=== PATIENT | male | born 1935 | race Asian ===

== ENCOUNTER 2022-05-30 07:13 | Inpatient (IN) | payer BC, MEDICAID ==
[~2022-05-30] VITALS: Ht 172.7 cm; Wt 66.5 kg
[2022-05-30 08:03] LABS: Basophils # (auto) 0.1 10 ^3/uL (0-0.2); Eosinophils # (auto) 0.5 10 ^3/uL (0-0.8); Hemoglobin 7.8 g/dL (13.5-17.5); Mean Corpuscular Hemoglobin 28.2 pg (28.0-32.0); Monocytes # (auto) 1.3 10 ^3/uL (0-1.3); Neutrophils # (auto) 9.5 10 ^3/uL (1.6-8.6)
[2022-05-30 08:06] LABS: Basophils % (auto) 0.7 % (0.0-2.0); Eosinophils % (auto) 3.5 % (0.0-7.0); Hematocrit 23.4 % (41.0-53.0); Lymphocytes # (auto) 1.6 10 ^3/uL (0.4-5.4); Lymphocytes % (auto) 12.4 % (10.0-50.0); Mean Corpuscular Hgb Conc. 33.3 g/dL (32.0-36.0); Mean Corpuscular Volume 84.8 fL (80.0-100.0); Monocytes % (auto) 10.4 % (0.0-12.0); Red Blood Cells 2.76 10^6/uL (4.5-5.90); Red Cell Distribution Width 14.8 % (11.8-14.3); White Blood Cell 12.9 10^3/uL (4.4-10.8)
[2022-05-30] MEDS ORDERED: ALBUTEROL SULF 2.5 MG/0.5ML(0.5%) NEB SOLN NEB ONE ×2 (08:15)
[2022-05-30] MEDS ORDERED: IPRATROPIUM BROM 0.5 MG/2.5ML INH SOL NEB ONE (08:15)
[2022-05-30 08:16] LABS: Albumin 2.7 g/dL (3.4-5.0); Calcium 8.1 mg/dL (8.5-10.1); Magnesium 2.1 mg/dL (1.6-2.6); Potassium 3.7 mmol/L (3.5-5.1)
[2022-05-30 08:18] LABS: BUN/Creatinine Ratio 14.1
[2022-05-30 08:20] LABS: Bilirubin, Total 0.8 mg/dL (0.2-1.0); Total Protein 7.6 g/dL (6.4-8.2)
[2022-05-30] MEDS ORDERED: AZITHROMYCIN 500MG/ 250ML 250 ML IV ONE ×2 (10:15→11:15)
[2022-05-30] MEDS ORDERED: CEFTRIAXONE SODIUM 2 GM in D5W 5% 50 ML IV ONE (10:15)
[2022-05-30] MEDS ORDERED: ONDANSETRON HCL 4 MG/2 ML VIAL IV PRN (10:30)
[2022-05-30] MEDS ORDERED: ALBUTEROL SULF 2.5 MG/0.5ML(0.5%) NEB SOLN NEB PRN (10:30)
[2022-05-30] MEDS ORDERED: HYDROcodone-ACET 5/325MG TAB PO PRN (10:30)
[2022-05-30] MEDS ORDERED: IPRATROPIUM BROM 0.5 MG/2.5ML INH SOL NEB PRN (10:30)
[2022-05-30] MEDS ORDERED: ALUM & MAG HYDROX-SIMETH LIQ(MAALOX) 30 ML PO PRN (10:30)
[2022-05-30] MEDS ORDERED: NITROGLYCERIN 0.4 MG SL TAB SL PRN (10:30)
[2022-05-30] MEDS ORDERED: MORPHINE SULFATE INJ 2 MG/ml SYRG IV PRN ×2 (10:30)
[2022-05-30 10:40] VITALS: BP 111/54
[2022-05-30] MEDS: SODIUM CHLORIDE 0.9% 1,000 ML IV SCH (10:52)
[2022-05-30 11:02] LABS: Cholesterol 134 mg/dL (< 200); HDL Cholesterol 25 mg/dL (40-59); LDL Cholesterol 94 mg/dL (< 100); Triglycerides 124 mg/dL (< 150)
[2022-05-30 13:29] LABS: Urine Bacteria NONE SEEN /hpf (None Seen); Urine Blood Negative /uL (Negative); Urine Mucus FEW (None Seen); Urine Specific Gravity 1.017 (1.001-1.035); Urine WBC 1 /hpf (0 - 3)
[2022-05-30] MEDS ORDERED: FLUT1AER3 PO (21:26)
[2022-05-30] MEDS ORDERED: AMLO-489 PO (21:26)
[2022-05-30] MEDS ORDERED: ASPI-325 PO (21:26)
[2022-05-30] MEDS ORDERED: METF-370 PO (21:26)
[2022-05-30] MEDS ORDERED: MET25T PO (21:26)
[2022-05-30] MEDS ORDERED: LORA-483 PO (21:26)
[2022-05-30] MEDS ORDERED: ACET-6 PO (21:26)
[2022-05-30] MEDS ORDERED: AMIO200T4 PO (21:26)
[2022-05-30] MEDS ORDERED: ALBU108A5 INH (21:26)
[2022-05-30] MEDS ORDERED: ATOR20TA50 PO (21:26)
[2022-05-31] VITALS (7 sets, daily range): BP systolic 113–151; BP diastolic 44–89
[2022-05-31 06:05] LABS: Basophils # (auto) 0.1 10 ^3/uL (0-0.2); Basophils % (auto) 0.7 % (0.0-2.0); Eosinophils # (auto) 0.4 10 ^3/uL (0-0.8); Eosinophils % (auto) 5.8 % (0.0-7.0); Hematocrit 36.6 % (41.0-53.0); Hemoglobin 12.5 g/dL (13.5-17.5); Lymphocytes # (auto) 1.2 10 ^3/uL (0.4-5.4); Lymphocytes % (auto) 16.7 % (10.0-50.0); Mean Corpuscular Hemoglobin 28.9 pg (28.0-32.0); Mean Corpuscular Hgb Conc. 34.2 g/dL (32.0-36.0); Mean Corpuscular Volume 84.5 fL (80.0-100.0); Monocytes # (auto) 0.6 10 ^3/uL (0-1.3); Monocytes % (auto) 9.1 % (0.0-12.0); Neutrophils # (auto) 4.7 10 ^3/uL (1.6-8.6); Neutrophils % (auto) 67.7 % (37.0-80.0); Red Blood Cells 4.33 10^6/uL (4.5-5.90); Red Cell Distribution Width 14.7 % (11.8-14.3); White Blood Cell 6.9 10^3/uL (4.4-10.8)
[2022-05-31] MEDS: SODIUM CHLORIDE 0.9% 1,000 ML IV SCH (06:06)
[2022-05-31 06:21] LABS: Albumin 2.6 g/dL (3.4-5.0); BUN/Creatinine Ratio 16.4; Calcium 7.8 mg/dL (8.5-10.1); Potassium 4.1 mmol/L (3.5-5.1)
[2022-05-31 06:25] LABS: Bilirubin, Total 0.6 mg/dL (0.2-1.0); Total Protein 6.6 g/dL (6.4-8.2)
[2022-05-31] MEDS: cefTRIAXone 1GM/50ML D5W 50 ML IV SCH (10:23)
[2022-05-31] MEDS: PANTOPRAZOLE 40 MG TAB PO SCH (10:25)
[2022-05-31] MEDS: predniSONE 20 MG TAB PO SCH (10:26)
[2022-05-31] MEDS: AZITHROMYCIN 500MG/ 250ML 250 ML IV SCH (11:30)
[2022-06-01 05:00] VITALS: BP 149/91
[2022-06-01 06:46] LABS: Albumin 3.4 g/dL (3.4-5.0); Calcium 8.2 mg/dL (8.5-10.1); Potassium 4.2 mmol/L (3.5-5.1)
[2022-06-01 06:52] LABS: BUN/Creatinine Ratio 7.5; Bilirubin, Total 0.5 mg/dL (0.2-1.0); Total Protein 7.2 g/dL (6.4-8.2)
[2022-06-01 06:55] LABS: Basophils # (auto) 0 10 ^3/uL (0-0.2); Eosinophils # (auto) 0 10 ^3/uL (0-0.8); Hemoglobin 9.7 g/dL (13.5-17.5); Lymphocytes # (auto) 2.7 10 ^3/uL (0.4-5.4); White Blood Cell 14.5 10^3/uL (4.4-10.8)
[2022-06-01 07:01] LABS: Basophils % (auto) 0.3 % (0.0-2.0); Hematocrit 31.6 % (41.0-53.0); Lymphocytes % (auto) 18.5 % (10.0-50.0); Mean Corpuscular Hemoglobin 22.6 pg (28.0-32.0); Mean Corpuscular Hgb Conc. 30.7 g/dL (32.0-36.0); Mean Corpuscular Volume 73.4 fL (80.0-100.0); Monocytes # (auto) 1.1 10 ^3/uL (0-1.3); Monocytes % (auto) 7.7 % (0.0-12.0); Neutrophils # (auto) 10.7 10 ^3/uL (1.6-8.6); Neutrophils % (auto) 73.5 % (37.0-80.0); Red Blood Cells 4.31 10^6/uL (4.5-5.90); Red Cell Distribution Width 18.2 % (11.8-14.3)
[2022-06-01 09:21] VITALS: BP 150/84
[2022-06-01] MEDS: cefTRIAXone 1GM/50ML D5W 50 ML IV SCH (10:39)
[2022-06-01] MEDS: FUROSEMIDE 40 MG/4 ML VIAL IV SCH (10:40)
[2022-06-01] MEDS: ENOXAPARIN SOD 40 MG/0.4 ML SYRINGE SC SCH (10:40)
[2022-06-01] MEDS: PANTOPRAZOLE 40 MG TAB PO SCH (10:41)
[2022-06-01] MEDS: predniSONE 20 MG TAB PO SCH (10:41)
[2022-06-01] MEDS: AZITHROMYCIN 500MG/ 250ML 250 ML IV SCH (12:00)
[2022-06-01 12:42] VITALS: BP 134/86
[2022-06-01 17:33] VITALS: BP 127/70
[2022-06-02 05:00] VITALS: BP 140/92
[2022-06-02 08:30] VITALS: BP 152/92
[2022-06-02] MEDS: cefTRIAXone 1GM/50ML D5W 50 ML IV SCH (10:15)
[2022-06-02] MEDS: FUROSEMIDE 40 MG/4 ML VIAL IV SCH (10:16)
[2022-06-02] MEDS: ENOXAPARIN SOD 40 MG/0.4 ML SYRINGE SC SCH (10:19)
[2022-06-02] MEDS: PANTOPRAZOLE 40 MG TAB PO SCH (10:19)
[2022-06-02] MEDS: predniSONE 20 MG TAB PO SCH (10:20)
[2022-06-02 12:30] VITALS: BP 133/73
[2022-06-02] MEDS: AZITHROMYCIN 500MG/ 250ML 250 ML IV SCH (13:53)
[2022-06-02] MEDS ORDERED: ASPirin 81 mg TAB PO ONE (14:30)
[2022-06-02] MEDS ORDERED: CLOPIDOGREL BISULFATE 75 MG TAB PO ONE (14:30)
[2022-06-02 17:00] VITALS: BP 136/65
[2022-06-02 22:00] VITALS: BP 139/88
[2022-06-02] MEDS ORDERED: ATORVASTATIN 20 MG TAB PO SCH (22:00)
[2022-06-02] MEDS: SACUBITRIL-VALSARTAN 24mg/26mg TAB PO SCH (22:16)
[2022-06-02] MEDS: METOPROLOL TARTRATE 25 MG TAB PO SCH (22:16)
[2022-06-03 04:55] VITALS: BP 165/93
[2022-06-03 05:00] VITALS: BP 172/92
[2022-06-03 09:00] VITALS: BP 157/88
[2022-06-03] MEDS ORDERED: ASPirin 81 mg TAB PO SCH (10:00)
[2022-06-03] MEDS ORDERED: CLOPIDOGREL BISULFATE 75 MG TAB PO SCH (10:00)
[2022-06-03] MEDS: FUROSEMIDE 40 MG/4 ML VIAL IV SCH (10:10)
[2022-06-03] MEDS: cefTRIAXone 1GM/50ML D5W 50 ML IV SCH (10:10)
[2022-06-03] MEDS: SACUBITRIL-VALSARTAN 24mg/26mg TAB PO SCH (10:11)
[2022-06-03] MEDS: AZITHROMYCIN 500MG/ 250ML 250 ML IV SCH (10:11)
[2022-06-03] MEDS: predniSONE 20 MG TAB PO SCH (10:11)
[2022-06-03] MEDS: ENOXAPARIN SOD 40 MG/0.4 ML SYRINGE SC SCH (10:12)
[2022-06-03] MEDS: METOPROLOL TARTRATE 25 MG TAB PO SCH (10:12)
[2022-06-03] MEDS ORDERED: AZIT500T66 PO (10:46)
[2022-06-03] MEDS ORDERED: CLOP75TA28 PO (10:46)
[2022-06-03] MEDS ORDERED: SACU1TAB PO (10:46)
[2022-06-03 11:26] VITALS: BP 157/88
== END 2022-06-03 11:55 | disposition home or self-care (01) | DRG 871 ==
LOC: EDBD 07:13 → ER 07:13 → TELE 10:29 → TELE-WESTW 20:54
PROVIDERS: ADMIT Family Medicine; ATTEND Family Medicine
DX: A41.9 Sepsis, unspecified organism (principal); J18.9 Pneumonia, unspecified organism; J96.01 Acute respiratory failure with hypoxia; J44.1 Chronic obstructive pulmonary disease with (acute) exacerbation; E44.0 Moderate protein-calorie malnutrition; J44.0 Chronic obstructive pulmonary disease with (acute) lower respiratory infection; D64.9 Anemia, unspecified; D75.839 Thrombocytosis, unspecified; E11.65 Type 2 diabetes mellitus with hyperglycemia; E66.01 Morbid (severe) obesity due to excess calories; E78.00 Pure hypercholesterolemia, unspecified; I10 Essential (primary) hypertension; I25.10 Atherosclerotic heart disease of native coronary artery without angina pectoris; I48.91 Unspecified atrial fibrillation; Z20.822 Contact with and (suspected) exposure to COVID-19; I37.1 Nonrheumatic pulmonary valve insufficiency; R94.31 Abnormal electrocardiogram [ECG] [EKG]; Z95.5 Presence of coronary angioplasty implant and graft; Z68.27 Body mass index [BMI] 27.0-27.9, adult; Z79.84 Long term (current) use of oral hypoglycemic drugs
CPT/HCPCS: 36415; 71045; 80053; 80061; 81001; 82962; 83036; 83735; 83880; 84443; 84484; 85025; 87040; 93005; 93306; 94640; 96365; 96368; G0378; J0696; J7060